=== PATIENT | female | born 1975 | race Caucasian/White ===

== ENCOUNTER 2018-08-05 08:39 | Emergency (ER) ==
[2018-08-05 08:51] VITALS: BP 164/90; TEMP 99; BMI 18.8
[2018-08-05 10:17] LABS: URINE PREGNANCY TEST NEGATIVE (NEGATIVE)
--- NOTE | 2018-08-05 10:36 | DI ---
EXAM: Four views of the left knee. History: Left knee pain. Findings: No acute fracture or dislocation. No abnormal calcifications or radiopaque foreign bodies . Joint spaces are preserved. Impression: Unremarkable exam
--- NOTE | 2018-08-05 10:38 | DI ---
EXAM: Three views of the left ankle. History: Left ankle pain. Findings: No acute fracture or dislocation. Several small scattered osseous lucencies are seen with in the distal tibia and fibula. Joint spaces are preserved. No abnormal calcifications or radiopaqu e foreign bodies. Impression: 1. No acute osseous abnormality. 2. Several small osseous lucencies within the distal tibia and fibula are nonspecific but could be b enign or malignant. Recommend further evaluation with non emergent outpatient MRI
--- NOTE | 2018-08-05 10:51 | ED.PDOC ---
General ED Provider: Dr. VERONICA ROD Chief Complaint: Extremity Pain/Injury Stated Complaint: left ankle and knee pain Time Seen by Physician: 08:40 Information Source: Patient Exam Limitations: No limitations Nursing and Triage Documentation Reviewed and Agree: Yes Does patient meet sepsis criteria?: No (seen with AHRIKA ) System Inflammatory Response Syndrome: Not Applicable Sepsis Protocol: For patient's 13 years and over: Temp is 96.8 and below OR 101 and greater Pulse >90 BPM Resp >20/minute Acutely Altered Mental Status Are patient's symptoms suggestive of a new infection, such as: -Pneumonia -Skin, Soft Tissue -Endocarditis -UTI -Bone, Joint Infection -Implantable Device -Acute Abdominal Infection -Wound Infection -Meningitis -Blood Stream Catheter Infection -Unknown Musculoskeletal Complaint Exam - Ankle/Foot Complaint/Exam Location of Injury: Reports: Left, Ankle, Foot Mechanism of Injury: Reports: Trauma Onset/Duration: 1 WEEK Symptoms Are: Reports: Still present Onset of Pain: Reports: Immediate Initial Severity: Mild Current Severity: Mild Location: Reports: Discrete Character: Reports: Aching Alleviating: Reports: Rest, Position Aggravating: Reports: Movement Able to Bear Weight: Yes Associated Signs and Symptoms: Denies: Swelling, Redness, Bruising, Fever, Weakness, Numbness, Tingling Gout Risk Factors: Reports: None Related Surgical History: Reports: None Lower Extremity Findings: Present: Other joint pain. Absent: Swelling, Ecchymosis, Abnormal contour, Rotation, Ligamentous instability, Laceration, Erythema, Warmth, Blisters Achilles Tendon Abnormality: Yes Tenderness: Present: Medial malleolus, Lateral malleolus Limited Range of Motion: Present: Inversion Differential Diagnosis: Closed Fracture Review of Systems - Review Of Systems Constitutional: Reports: No symptoms Eyes: Reports: No symptoms Ears, Nose, Mouth, Throat: Reports: No symptoms Respiratory: Reports: No symptoms Cardiac: Reports: No symptoms GI: Reports: No symptoms : Reports: No symptoms Musculoskeletal: Reports: Joint pain (LEFT PAIN) Skin: Reports: No symptoms Neurological: Reports: No symptoms Endocrine: Reports: No symptoms Hematologic/Lymphatic: Reports: No symptoms All Other Systems: Reviewed and Negative Past Medical History - Past Medical History Previously Healthy: Yes Endocrine: Reports: None Cardiovascular: Reports: None Respiratory: Reports: None Hematological: Reports: None Gastrointestinal: Reports: None Genitourinary: Reports: None Neuro/Psych: Reports: None Musculoskeletal: Reports: None Cancer: Reports: None Last Menstrual Period: no period for 3 months. - Surgical History General Surgical History: Reports: None - Family History Family History: Reports: None - Social History Smoking Status: Current every day smoker Hx Substance Use: No Alcohol Screening: Occasionally - Immunizations Tetanus Shot up to Date: No Physical Exam - Physical Exam Appearance: Well-appearing, No pain distress, Well-nourished Eyes: GLENNY, EOMI, Conjunctiva clear ENT: Ears normal, Nose normal, Oropharynx normal Respiratory: Airway patent, Breath sounds clear, Breath sounds equal, Respirations nonlabored Cardiovascular: RRR, Pulses normal, No rub, No murmur GI/: Soft, Nontender, No masses, Bowel sounds normal, No Organomegaly Musculoskeletal: Normal strength, ROM intact, No edema, No calf tenderness Skin: Warm, Dry, Normal color Neurological: Sensation intact, Motor intact, Reflexes intact, Cranial nerves intact, Alert, Oriented Psychiatric: Affect appropriate, Mood appropriate Critical Care Note - Critical Care Note Total Time (mins): 0 Course - Course Orders, Labs, Meds: Lab Review 08/05/18 10:03 Urine Test Negative Orders Category Date Time Status URINE Stat LAB 08/05/18 10:03 Completed ANKLE, LEFT MIN 3 VIEWS Stat RADS 08/05/18 09:52 Completed KNEE, LEFT 4 VIEWS Stat RADS 08/05/18 09:52 Completed Vital Signs: Temp Pulse Resp BP Pulse Ox 08/05/18 08:39 99.0 F 121 H 20 164/90 H 96 Departure - Departure Time of Disposition: 10:53 Disposition: HOME SELF-CARE Discharge Problem: Ankle sprain Qualifiers: Encounter type: initial encounter Laterality: left Instructions: Knee Pain (ED) Condition: Good Pt referred to PMD for follow-up: Yes IPMP verified?: No Additional Instructions: Please call your Family Physician as soon as possible to schedule a follow-up appointment. Allergies/Adverse Reactions: Allergies No Known Allergies Allergy (Unverified 08/05/18 08:53) Home Medications: Ambulatory Orders 1 [No Reported Medications] 08/05/18
== END 2018-08-05 11:04 | disposition home or self-care (01) ==
LOC: ED 08:39
DX: S93.402A Sprain of unspecified ligament of left ankle, initial encounter (principal); M25.562 Pain in left knee; X50.1XXA Overexertion from prolonged static or awkward postures, initial encounter; F17.210 Nicotine dependence, cigarettes, uncomplicated
CPT/HCPCS: 81025; 99282

== ENCOUNTER 2018-08-12 12:18 | Outpatient (CLI) | END 2018-08-12 12:19 | disposition home or self-care (01) | LOC: RHC-LAB 12:18 | PROVIDERS: ATTEND Nurse Practitioner Family | DX: R31.9 Hematuria, unspecified (principal); R35.0 Frequency of micturition | CPT/HCPCS: 81001 ==

== ENCOUNTER 2024-03-25 18:20 | Observation (INO) ==
[2024-03-25 19:05] LABS: BASOPHILS % (AUTO) 0.5 % (0.0-3.0); EOSINOPHILS # (AUTO) 0.2 K/ul (0.0-0.7); EOSINOPHILS % (AUTO) 1.8 % (0.0-7.0); HEMATOCRIT 33.9 % (37.0-47.0); HEMOGLOBIN 11.6 g/dl (12.0-16.0); IMMATURE GRANULOCYTE % (AUTO) 0.2 % (0.0-5.0); LYMPHOCYTES # (AUTO) 3.3 K/uL (0.60-3.4); LYMPHOCYTES % (AUTO) 38.4 (10.0-50.0); MEAN CORPUSCULAR HEMOGLOBIN 33.8 pg (27.0-31.0); MEAN CORPUSCULAR HGB CONC 34.2 (31.8-35.4); MEAN CORPUSCULAR VOLUME 98.8 fl (81.0-99.0); MONOCYTES % (AUTO) 11.2 (0-10); NEUTROPHILS # (AUTO) 4.1 K/ul (2.0-6.9); NEUTROPHILS % (AUTO) 47.9 % (42.2-75.2); PLATELET COUNT 249 10^3/uL (140-440); RED BLOOD COUNT 3.43 10^6/ul (4.20-5.40)
[2024-03-25] MEDS: ATIVAN IVP STA (19:10)
[2024-03-25 19:18] LABS: ALBUMIN 4.43 g/dL (3.5-5.0); ASPARTATE AMINO TRANSFERASE 51.3 U/L (14-36); BILIRUBIN,TOTAL 0.27 mg/dL (0.2-1.3); BLOOD UREA NITROGEN 5.8 mg/dL (7-17); CALCIUM 9.08 mg/dL (8.4-10.2); CARBON DIOXIDE 23.5 mmol/L (22-30.0); CHLORIDE 84.3 mmol/L (98-107); CREATININE 0.68 mg/dL (0.60-1.30); GLUCOSE 103.2 mg/dL (74-106); LIPASE 70.9 U/L (23-300); POTASSIUM 4.61 mmol/L (3.5-5.1); TOTAL PROTEIN 7.49 g/dL (6.3-8.2)
--- NOTE | 2024-03-25 19:23 | ED.PDOC ---
General ED Provider: Dr. MARGARET MEEHAN DO Chief Complaint: Hypertension Stated Complaint: I can tell my blood pressure was up and I am checking When asked how she could tell her blood pressure was up she states that she normally develops a headache feels off she also now she was getting very shaky. She does admit to feeling a little nauseous last couple days. She denies any stimulant use other than nicotine She does admit to daily alcohol use as I think to drink today. I have reviewed the patient's medical records and she does have a history of alcohol abuse States she checks her blood pressure at home and has been in the 180s. She denies any chest pain or shortness of breath she denies any abdominal pain nausea but no vomiting no diarrhea Time Seen by Provider: 03/25/24 18:45 Mode of Arrival: Walk-In Information Source: Patient Exam Limitations: No limitations Primary Care Provider: HARIKA SCHULTE APRN,[facility] Nursing and Triage Documentation Reviewed and Agree: Yes What is Opioid Naive?: *Opioid Naive implies the patient is not already taking opioids or not chronically receiving opioids on a daily basis. *PRN dosing is not "usually" associated with tolerance. *Patients are at higher risk of over-sedation and aspiration. What is Opioid Tolerant?: *Opioid Tolerance implies less than the expected response to an opioid. *Acquired tolerance is defined by the patient taking 60mg of oral morphine daily (or equianalgesic dose of another opioid) for 1 week or more. *Often associated with chronic pain. *May take more than usual dose to achieve desired pain control. Review of Systems Review Of Systems Constitutional: Denies Chills, Fever, Malaise or Weakness Eyes: Reports No symptoms Ears, Nose, Mouth, Throat: Reports No symptoms Respiratory: Reports No symptoms Cardiac: Denies Chest pain, Edema, Irregular heart rate, Lightheadedness, Palpitations or Syncope GI: Reports Nausea and Poor appetite; Denies Abdominal pain, Diarrhea or Vomiting : Reports No symptoms Musculoskeletal: Reports No symptoms Skin: Reports No symptoms Neurological: Reports Anxiety Endocrine: Reports No symptoms Hematologic/Lymphatic: Reports No symptoms [facility] Medical History Hypo-osmolality and hyponatremia E87.1 - Hypo-osmolality and hyponatremia (ICD-10) Gastroesophageal reflux disease K21.9 - Gastro-esophageal reflux disease without esophagitis (ICD-10) Social History Smoking and tobacco status: Current every day smoker Tobacco type: cigarettes Smoking packs per day: 1 Years smoked: 30 Tobacco: How many years used: 40 Quit status: not considering quitting Second hand smoke exposure: Yes Alcohol intake: current Alcohol intake frequency: 3 or more drinks per day Alcohol type: beer Counseling provided: provider counseling Substance use type: does not use Cinthia/anabaptism: NONE Special cinthia needs: No Agree to transfusion: Yes Adopted: No Caregiver/support person: No Foster care: No Household members: children Housing: house Marital status: S SINGLE Lives independently: Yes Daycare: no daycare Number of children: 3 Number of grandchildren: 0 Highest education level completed: 11th grade Financial difficulty paying for basics: not applicable service: No penitentiary: No Current occupational status: employed 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 Current occupational exposures/hazards: Yes Pets and animals: Yes Leisure activites: other History of recent travel: No Sexually active: No Do you think of yourself as: straight/heterosexual Current gender identity: female Seatbelt use: always Helmet use: No (N/A) Drives intoxicated or rides with intoxicated dairy truck driver: No Water heater temperature set < 120 degrees: Yes Working smoke detector in home: Yes Fire extinguisher in home: Yes Carbon monoxide detector in home: No Firearms in home: No Female Reproductive History Menstrual Hx Hysterectomy: No Hx Tubal Ligation: No Physical Exam Physical Exam Appearance: Reports No pain distress Ill-appearing: None Pain Distress: None Eyes: Reports GLENNY and EOMI Neck: Supple Respiratory: Reports Airway patent, Breath sounds clear and Breath sounds equal Cardiovascular: Reports RRR GI/: Reports Soft and Nontender Musculoskeletal: Reports Normal strength, ROM intact, No edema and No calf tenderness Skin: Reports Warm and Dry Psychiatric: Reports Anxious and Other (Positive hand tremor) Interpretation EKG Interpretation Time of EKG #1: 18:50 ST Segment: Other (Twelve-lead EKG as read by me shortly after obtaining sinus rate of 84 with normal axis normal intervals there is some motion artifact but no obvious T wave abnormalities no evidence of acute ischemia or infarct no STEMI) Course Course 03/25/24 18:59 03/25/24 18:59 Orders, Labs, Meds: Lab Review 03/25/24 03/25/24 18:59 19:31 WBC 8.50 RBC 3.43 L Hgb 11.6 L Hct 33.9 L MCV 98.8 MCH 33.8 H MCHC 34.2 RDW Coeff of Adrian 12.0 Plt Count 249 Immature Gran % (Auto) 0.2 Neut % (Auto) 47.9 Lymph % (Auto) 38.4 Crenshaw % (Auto) 11.2 H Eos % (Auto) 1.8 Baso % (Auto) 0.5 Neut # (Auto) 4.1 Lymph # (Auto) 3.3 Crenshaw # (Auto) 1.0 Eos # (Auto) 0.2 Baso # (Auto) 0.0 Immature Gran # (Auto) 0.0 Sodium 116.0 L* Potassium 4.61 Chloride 84.3 L Carbon Dioxide 23.5 Anion Gap 12.81 BUN 5.8 L Creatinine 0.68 Estimated GFR (MDRD) 92.00 BUN/Creatinine Ratio 8.52 Glucose 103.2 Calcium 9.08 Total Bilirubin 0.27 AST 51.3 H ALT 18.0 Alkaline Phosphatase 85.0 Troponin I < 0.012 Total Protein 7.49 Albumin 4.43 Globulin 3.06 Albumin/Globulin Ratio 1.44 Lipase 70.9 Urine Color Yellow Urine Clarity Clear Urine pH 5.5 Ur Specific Myra <=1.005 Urine Protein Negative Urine Glucose (UA) Negative Urine Ketones Negative Urine Blood Trace-intact H Urine Nitrite Negative Urine Bilirubin Negative Urine Urobilinogen 0.2 Ur Leukocyte Esterase Negative Urine Microscopic RBC 2-5 Urine Microscopic WBC 0-2 Ur Squamous Epith Cells 10-20 Urine Bacteria Trace Urine Opiates Screen Negative Ur Oxycodone Screen Negative Urine Methadone Screen Negative Ur Barbiturates Screen Negative U Tricyclic Antidepress Negative Ur Phencyclidine Scrn Negative Ur Amphetamine Screen Negative U Methamphetamines Scrn Negative U Benzodiazepines Scrn Negative Urine Cocaine Screen Negative U Cannabinoids Screen Negative Orders Category Date Time Status PLACE PATIENT OBSERVATION .TO MEDSURG (MONITORED BED ADMISSION 03/25/24 20:48 Active ) EKG-(ED ONLY) Stat CARDIO 03/25/24 18:50 Completed ACTIVITY .Up ad Yina CARE 03/25/24 20:54 Active [facility] PRN CARE 03/25/24 20:56 Active CONTINUOUS PULSE OX (NURSING) PULSEOX CARE 03/25/24 20:56 Active INTAKE & OUTPUT Q8HR CARE 03/25/24 20:54 Active SEIZURE ASSESSMENT .PRN CARE 03/25/24 20:59 Active SEIZURE PRECAUTIONS .AT ALL TIMES CARE 03/25/24 20:59 Active TELEMETRY MONITORING TELE CARE 03/25/24 20:49 Active TELEMETRY MONITORING TELE CARE 03/25/24 20:56 Completed VITAL SIGNS Q4HR CARE 03/25/24 20:55 Active REGULAR DIET DIETARY 03/26/24 Breakfast Ordered BMP [BASIC METABOLIC PANEL] Timed LAB 03/26/24 02:00 Ordered CBC W/ AUTO DIFF DAILY@0600 LAB 03/26/24 06:00 Ordered CBC W/ AUTO DIFF DAILY@0600 LAB 03/27/24 06:00 Ordered CBC W/ AUTO DIFF Stat LAB 03/25/24 18:59 Completed CMP [COMPREHENSIVE METABOLIC PANEL] Stat LAB 03/25/24 18:59 Completed COMPREHENSIVE METABOLIC PANEL DAILY@0600 LAB 03/26/24 06:00 Ordered COMPREHENSIVE METABOLIC PANEL DAILY@0600 LAB 03/27/24 06:00 Ordered COVID [SARS COV-2 RNA RAPID SORAYA] Stat LAB 03/25/24 21:49 Completed LIPASE Stat LAB 03/25/24 18:59 Completed OSMOLALITY,URINE Stat LAB 03/25/24 21:00 Received SERUM OSMOLALITY Stat LAB 03/25/24 21:00 Received TROPONIN I Stat LAB 03/25/24 18:59 Completed UA [URINALYSIS C & S IF INDICATED] Stat LAB 03/25/24 19:31 Completed URINE DRUG SCREEN (RAPID FOR ED) [DRUG SCREEN, URINE, LAB 03/25/24 19:31 Completed RAPID] Stat Acetaminophen [Tylenol] Meds 03/25/24 20:54 Active 650 mg PO Q4H PRN Folic Acid Meds 03/26/24 09:00 Active 1 mg PO DAILY Lorazepam [Ativan] Meds 03/25/24 20:54 Active 1 mg IVP Q2HR PRN Lorazepam [Ativan] Meds 03/25/24 20:54 Active 1 mg PO Q2HR PRN Lorazepam [Ativan] Meds 03/25/24 18:50 Discontinued 2 mg IVP ONCE STA Lorazepam [Ativan] Meds 03/25/24 20:54 Active 2 mg IVP Q15MIN PRN Lorazepam [Ativan] Meds 03/25/24 20:54 Active 2 mg IVP Q1HR PRN Lorazepam [Ativan] Meds 03/25/24 20:54 Active 2 mg PO Q1HR PRN Multivitamin [Multivitamin Tablet] Meds 03/26/24 09:00 Active 1 tab PO DAILY Ondansetron HCl/Pf [Zofran Sdv] Meds 03/25/24 20:54 Active 4 mg IVP Q6H PRN Sodium Chloride 0.9% [Sodium Chloride] 1,000 ml Meds 03/25/24 20:48 Active IV 125 mls/hr Sodium Chloride 0.9% [Sodium Chloride] 1,000 ml Meds 03/25/24 21:30 Active IV 125 mls/hr Sodium Chloride 0.9% [Sodium Chloride] 1,000 ml Meds 03/25/24 19:57 Discontinued IV BOLUS Vitamin B-1 Inj [Thiamine] 100 mg Meds 03/25/24 20:54 Discontinued 0.9 % Sodium Chloride [Sodium Chloride] 50 ml IV ONCE Vitamin B-1 [Thiamine] Meds 03/26/24 09:00 Active 100 mg PO DAILY CHEST, 1V AP ONLY Stat RADS 03/25/24 19:10 Completed Medications Generic Name Dose Route Start Last Admin Trade Name Freq PRN Reason Stop Dose Admin Acetaminophen 650 mg 03/25/24 20:54 Acetaminophen 325 Mg Tablet PO Q4H PRN Mild Pain Albuterol Sulfate 2 puff 03/25/24 22:30 Albuterol Sulfate 8 Gm Inhaler IH Q6H PRN Bronchospasm Folic Acid 1 mg 03/26/24 09:00 Folic Acid 1 Mg Tablet PO DAILY YULIANA Sodium Chloride 1,000 mls @ 125 mls/hr 03/25/24 20:48 Sodium Chloride IV 03/26/24 04:47 .Q8H ONE Sodium Chloride 1,000 mls @ 125 mls/hr 03/25/24 21:30 Sodium Chloride IV .Q8H YULIANA Lorazepam 2 mg 03/25/24 20:54 Lorazepam 1 Mg Tablet PO Q1HR PRN Withdrawal Lorazepam 1 mg 03/25/24 20:54 Lorazepam 1 Mg Tablet PO Q2HR PRN Withdrawal Lorazepam 2 mg 03/25/24 20:54 Lorazepam Inj 2 Mg/Ml Vial IVP Q15MIN PRN Withdrawal Lorazepam 2 mg 03/25/24 20:54 Lorazepam Inj 2 Mg/Ml Vial IVP Q1HR PRN Withdrawal Lorazepam 1 mg 03/25/24 20:54 Lorazepam Inj 2 Mg/Ml Vial IVP Q2HR PRN Withdrawal Losartan Potassium 25 mg 03/26/24 09:00 Losartan Potassium 25 Mg Tablet PO DAILY [facility] Metoprolol Succinate 25 mg 03/25/24 22:30 Metoprolol Succinate 25 Mg Tab.Er.24h PO Q12H [facility] Multivitamins 1 tab 03/26/24 09:00 Multivitamin 1 Tab PO DAILY [facility] Omeprazole 40 mg 03/26/24 09:00 Omeprazole 20 Mg Capsule.Dr PO DAILY [facility] Ondansetron HCl 4 mg 03/25/24 20:54 Ondansetron Hcl/Pf 4 Mg/2 Ml Sdv IVP Q6H PRN Nausea / Vomiting Thiamine HCl 100 mg 03/26/24 09:00 Vitamin B-1 100 Mg Tablet PO DAILY [facility] Discontinued Medications Generic Name Dose Route Start Last Admin Trade Name Freq PRN Reason Stop Dose Admin Sodium Chloride 1,000 mls @ 1,000 mls/hr 03/25/24 19:57 03/25/24 20:14 Sodium Chloride IV 03/25/24 20:56 1,000 mls/hr BOLUS ONE Administration Thiamine HCl 100 mg/ Sodium 51 mls @ 100 mls/hr 03/25/24 20:54 Chloride IV 03/25/24 21:24 ONCE ONE Lorazepam 2 mg 03/25/24 18:50 03/25/24 19:10 Lorazepam Inj 2 Mg/Ml Vial IVP 03/25/24 18:51 2 mg ONCE STA Administration Shortly after interviewing and examining the patient, treatment was initiated. Orders were placed for appropriate testing and treatment specific to my findings, appropriate guidelines and the patients complaint (please see physician order section of this chart). Based on the patients chief complaint, and information gathered so far, the following diagnosis were considered. This list is not exhaustive. Acute coronary syndrome, CHF, COPD, asthma, pneumothorax, aortic pathologies, pulmonary embolism, pneumonia, bronchitis, esophageal pathologies, muscular skeletal pain, airway obstruction (including foreign body), gastritis. I have also take into consideration the likelihood that this is alcohol withdrawal Vital Signs: Temp Pulse Resp BP Pulse Ox 03/25/24 18:25 97.3 F L 98 20 180/112 H 100 Discharge Plan Discharge Patient Disposition: PLACED OBSERVATION Discharge Problem: Hyponatremia, Tremor Did you review [place] [employer] for ALL controlled substances?: Not Applicable ED Provider: MARGARET MEEHAN
[2024-03-25 19:39] LABS: TROPONIN I < 0.012 ng/ml (0.0000-0.120)
[2024-03-25 20:00] LABS: BILIRUBIN,URINE Negative (NEGATIVE); CLARITY,URINE Clear (CLEAR); COLOR,URINE Yellow (YELLOW); GLUCOSE, URINE (UA) Negative (NEGATIVE); KETONES,URINE Negative (NEGATIVE); LEUKOCYTE ESTERASE ,URINE Negative (NEGATIVE); NITRITE,URINE Negative (NEGATIVE); PH,URINE 5.5 (5-9); PROTEIN,URINE Negative (NEGATIVE); URINE, BLOOD Trace-intact (NEGATIVE); UROBILINOGEN,URINE 0.2 (0.2)
[2024-03-25 20:01] LABS: BACTERIA,URINE TRACE (NOT PRESENT); URINE WBC, MICROSCOPIC 0-2 (0-2)
[2024-03-25 20:07] LABS: AMPHETAMINE SCREEN,URINE NEGATIVE (NEGATIVE); BARBITURATE SCREEN,URINE NEGATIVE (NEGATIVE); BENZODIAZEPINES SCREEN,URINE NEGATIVE (NEGATIVE); CANNABINOID SCREEN,URINE NEGATIVE (NEGATIVE); COCAIN SCREEN,URINE NEGATIVE (NEGATIVE); METHADONE URINE SCREEN NEGATIVE (NEGATIVE); METHAMPHETAMINES SCREEN,URINE NEGATIVE (NEGATIVE); OPIATE SCREEN,URINE NEGATIVE (NEGATIVE); OXYCODONE URINE SCREEN NEGATIVE (NEGATIVE); PHENCYCLIDINE SCREEN,URINE NEGATIVE (NEGATIVE); TRICYCLIC ANTIDEPRESSANTS URIN NEGATIVE (NEGATIVE)
--- NOTE | 2024-03-25 20:11 | DI ---
EXAM: CHEST ONE-VIEW HISTORY: Shaky COMPARISON: AP chest from 11/16/2023 FINDINGS: The cardiomediastinal silhouette is normal. The pulmonary vasculature is normal. No con solidating infiltrates are detected. No pneumothoraces or pleural effusions. IMPRESSION: 1. No acute cardiopulmonary disease. .
[2024-03-25] MEDS: SODIUM CHLORIDE 1,000 ML IV ONE (20:14)
[2024-03-25] MEDS ORDERED: SODIUM CHLORIDE 1,000 ML IV ONE (20:48)
[2024-03-25] MEDS ORDERED: TYLENOL PO PRN (20:54)
[2024-03-25] MEDS ORDERED: ATIVAN IVP PRN ×3 (20:54)
[2024-03-25] MEDS ORDERED: ZOFRAN SDV IVP PRN (20:54)
[2024-03-25] MEDS ORDERED: ATIVAN PO PRN ×2 (20:54)
[2024-03-25 22:04] LABS: SARS COV-2 RNA RAPID NAAT NEGATIVE (NEGATIVE)
[2024-03-25] MEDS ORDERED: VENTOLIN HFA IH PRN (22:30)
[2024-03-25 23:26] VITALS: BMI 22.1
[2024-03-25] MEDS ORDERED: THIAMINE 100 MG in SODIUM CHLORIDE 50 ML IV ONE (23:30)
[2024-03-26] MEDS: SODIUM CHLORIDE 1,000 ML IV SCH (00:02)
[2024-03-26] MEDS: THIAMINE 100 MG in SODIUM CHLORIDE 50 ML IV ONE (00:14)
[2024-03-26] MEDS: THIAMINE ONE (00:18)
[2024-03-26] MEDS: TOPROL XL PO SCH (00:22)
[2024-03-26 02:21] LABS: BLOOD UREA NITROGEN 6.3 mg/dL (7-17); CALCIUM 8.93 mg/dL (8.4-10.2); CARBON DIOXIDE 27.2 mmol/L (22-30.0); CHLORIDE 94.1 mmol/L (98-107); CREATININE 0.65 mg/dL (0.60-1.30); GLUCOSE 97.3 mg/dL (74-106); POTASSIUM 4.2 mmol/L (3.5-5.1); SODIUM 125.3 mmol/L (134.5-145)
[2024-03-26 05:35] LABS: BASOPHILS % (AUTO) 0.2 % (0.0-3.0); EOSINOPHILS # (AUTO) 0.1 K/ul (0.0-0.7); EOSINOPHILS % (AUTO) 1.5 % (0.0-7.0); HEMATOCRIT 34.1 % (37.0-47.0); HEMOGLOBIN 12.1 g/dl (12.0-16.0); IMMATURE GRANULOCYTE % (AUTO) 0.2 % (0.0-5.0); LYMPHOCYTES # (AUTO) 1.4 K/uL (0.60-3.4); LYMPHOCYTES % (AUTO) 21.2 (10.0-50.0); MEAN CORPUSCULAR HEMOGLOBIN 34.6 pg (27.0-31.0); MEAN CORPUSCULAR HGB CONC 35.5 (31.8-35.4); MEAN CORPUSCULAR VOLUME 97.4 fl (81.0-99.0); MONOCYTES # (AUTO) 0.7 K/uL (0.4-2.0); MONOCYTES % (AUTO) 10.7 (0-10); NEUTROPHILS # (AUTO) 4.3 K/ul (2.0-6.9); NEUTROPHILS % (AUTO) 66.2 % (42.2-75.2); PLATELET COUNT 241 10^3/uL (140-440); RDW COEFFICIENT OF VARIATION 11.9 % (11.6-14.8); WHITE BLOOD COUNT 6.52 K/ul (4.6-10.2)
[2024-03-26 05:49] LABS: ALANINE AMINOTRANSFERASE 16.4 U/L (0-35); ALBUMIN 3.95 g/dL (3.5-5.0); ALKALINE PHOSPHATASE 78.2 U/L (38-126); ASPARTATE AMINO TRANSFERASE 36.3 U/L (14-36); BILIRUBIN,TOTAL 1.02 mg/dL (0.2-1.3); BLOOD UREA NITROGEN 6.7 mg/dL (7-17); CALCIUM 9.33 mg/dL (8.4-10.2); CARBON DIOXIDE 26.6 mmol/L (22-30.0); CHLORIDE 99.2 mmol/L (98-107); CREATININE 0.6 mg/dL (0.60-1.30); POTASSIUM 4.11 mmol/L (3.5-5.1); SODIUM 130.1 mmol/L (134.5-145); TOTAL PROTEIN 6.81 g/dL (6.3-8.2)
[2024-03-26] MEDS: MULTIVITAMIN TABLET PO SCH (09:20)
[2024-03-26] MEDS: THIAMINE PO SCH (09:21)
[2024-03-26] MEDS: COZAAR PO SCH (09:21)
[2024-03-26] MEDS: FOLIC ACID PO SCH (09:21)
[2024-03-26] MEDS: PRILOSEC PO SCH (09:21)
--- NOTE | 2024-03-26 09:37 | PCM.SS ---
Provider Provider: MERARI PATIÑO PA-C, [facility] Admission Date Admission Date: 03/25/24 Discharge Date Discharge Date: 03/26/24 Primary Care Physician Primary Care Physician: HARIKA SCHULTE APRN,[facility] Chief Complaint Reason For Visit: HYPONATREMIA History of Present Illness History of Present Illness: Admitted 03/25/24 21:39, this 49 year old /WHITE/F with pmhx of alcohol use, chronic hyponatremia, hyperlipidemia, hypertension, gerd who presents to ER with overall not feeling well and elevated BP. She states her BP was fine earlier in the day. But then she started getting a headache and checked her BP and it was elevated. In the ER it was initially 180s but then came down without intervention. She was given ativan in the ER in case alcohol withdrawal was contributing. However she states she had had 3 beers and did not feel as though she was withdrawing. She was found to have sodium of 116 when she normally runs mid 120s. Admitted to med surg for hyponatremia. Pt was started on NS fluids. Repeat check at 0200 showed sodium of 125. Fluids were stopped. This morning sodium is now 130. Pt is feeling at her baseline. Hoping to go home so she can smoke. She states she takes lasix for her BP, not edema. We discussed holding that and her potassium supplement until her PCP follow up to see if it helps her sodium. We also discussed her chronic alcohol use is a major contributer. We discussed risks of high and low sodium levels. Serum and urine osmols pending. [facility] Medical History Hypo-osmolality and hyponatremia E87.1 - Hypo-osmolality and hyponatremia (ICD-10) Gastroesophageal reflux disease K21.9 - Gastro-esophageal reflux disease without esophagitis (ICD-10) Family History FATHER Hypertension Mother Hypertension SISTER TIA (transient ischemic attack) Social History Smoking and tobacco status: Current every day smoker Tobacco type: cigarettes Smoking packs per day: 1 Years smoked: 30 Tobacco: How many years used: 40 Quit status: not considering quitting Second hand smoke exposure: Yes Alcohol intake: current Alcohol intake frequency: 3 or more drinks per day Alcohol type: beer Counseling given: Yes Counseling provided: provider counseling Substance use type: does not use Counseling given: Yes (Patient may drink up to 8 beers each eveing) Cinthia/buddhism: NONE Special cinthia needs: No Agree to transfusion: Yes Adopted: No Caregiver/support person: No Foster care: No Household members: children Housing: house Marital status: S SINGLE Lives independently: Yes Daycare: no daycare Number of children: 3 Number of grandchildren: 0 Highest education level completed: 11th grade Financial difficulty paying for basics: not applicable service: No USP: No Current occupational status: employed 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 Current occupational exposures/hazards: Yes Pets and animals: Yes Leisure activites: other History of recent travel: No Sexually active: No Do you think of yourself as: straight/heterosexual Current gender identity: female Other: Patient is a fraternal twin Seatbelt use: always Helmet use: No (N/A) Drives intoxicated or rides with intoxicated hazmat cdl driver: No Water heater temperature set < 120 degrees: Yes Working smoke detector in home: Yes Fire extinguisher in home: Yes Carbon monoxide detector in home: No Firearms in home: No Medications Mecications: Medications at Discharge (Home Meds & RX) albuterol sulfate 90 mcg/actuation aerosol inhaler See Rx Instructions .Route .COMPLEX #8.5 grams 10/08/23 potassium chloride 20 mEq tablet,extended release(part/cryst) (Klor-Con M) 20 meq PO QDAY persistently low potassium #90 tabs 11/01/23 cetirizine 10 mg capsule (Zyrtec) 10 mg PO QDAY #30 caps 11/21/23 omeprazole 40 mg capsule,delayed release 40 mg PO DAILY #30 caps 02/17/24 furosemide 20 mg tablet 20 mg PO QDAY #30 tabs 03/02/24 losartan 50 mg tablet 25 mg (1/2 x 50 mg) PO QDAY #30 tabs 03/17/24 metoprolol succinate 25 mg tablet,extended release 24 hr 25 mg PO Q12H 03/25/24 Allergies Allergies Allergy/AdvReac Type Severity Reaction Status Date / Time amoxicillin trihydrate (From Allergy Mild Upset Verified 03/25/24 18:32 Amoxil) stomach amlodipine AdvReac Mild tingling Verified 03/25/24 18:32 and numbness to lower extremities Review of Systems Constitutional: Denies Fever or Fatigue Cardiovascular: Denies Chest pain, Chest Pressure or Edema Respiratory: Denies Cough or Shortness of air Gastrointestinal: Denies Nausea, Vomiting, Diarrhea, Abdominal pain or Melena Genitourinary: Denies Dysuria or Frequency Dermatologic: Denies Rashes Neurological: Denies Headache, Dizziness or Syncope Physical Examination Appearance: Positive No Apparent Distress and Alert and Oriented x3 Head: Positive Normocephalic and Atraumatic Neck: Positive Supple and Trachea Midline Heart: Positive RRR Respiratory: Positive Breath Sounds Clear, Bilaterally and Respirations Nonlabored GI/: Positive Soft, Nontender, Bowel sounds normal and No Distention Extremities: Negative Edema Neurological: Positive Cranial nerves intact, Alert and Oriented Psychiatric: Positive Normal Judgement, Normal Insight, Affect Appropriate and Mood Appropriate Vital Signs (Last 4 Hours) Vital Signs Last 4 Hours: Vital Signs: Last 4 Hours 03/26/24 06:00 03/26/24 07:00 03/26/24 08:00 Oxygen Delivery Method Room Air Room Air Room Air Labs This Visit Labs This Visit: Labs This Visit 03/25/24 03/25/24 03/25/24 18:59 19:31 21:49 WBC 8.50 RBC 3.43 L Hgb 11.6 L Hct 33.9 L MCV 98.8 MCH 33.8 H MCHC 34.2 RDW Coeff of Adrian 12.0 Plt Count 249 Immature Gran % (Auto) 0.2 Neut % (Auto) 47.9 Lymph % (Auto) 38.4 Newton % (Auto) 11.2 H Eos % (Auto) 1.8 Baso % (Auto) 0.5 Neut # (Auto) 4.1 Lymph # (Auto) 3.3 Newton # (Auto) 1.0 Eos # (Auto) 0.2 Baso # (Auto) 0.0 Immature Gran # (Auto) 0.0 Sodium 116.0 L* Potassium 4.61 Chloride 84.3 L Carbon Dioxide 23.5 Anion Gap 12.81 BUN 5.8 L Creatinine 0.68 Estimated GFR (MDRD) 92.00 BUN/Creatinine Ratio 8.52 Glucose 103.2 Calcium 9.08 Total Bilirubin 0.27 AST 51.3 H ALT 18.0 Alkaline Phosphatase 85.0 Troponin I < 0.012 Total Protein 7.49 Albumin 4.43 Globulin 3.06 Albumin/Globulin Ratio 1.44 Lipase 70.9 Urine Color Yellow Urine Clarity Clear Urine pH 5.5 Ur Specific [place] <=1.005 Urine Protein Negative Urine Glucose (UA) Negative Urine Ketones Negative Urine Blood Trace-intact H Urine Nitrite Negative Urine Bilirubin Negative Urine Urobilinogen 0.2 Ur Leukocyte Esterase Negative Urine Microscopic RBC 2-5 Urine Microscopic WBC 0-2 Ur Squamous Epith Cells 10-20 Urine Bacteria Trace Urine Opiates Screen Negative Ur Oxycodone Screen Negative Urine Methadone Screen Negative Ur Barbiturates Screen Negative U Tricyclic Antidepress Negative Ur Phencyclidine Scrn Negative Ur Amphetamine Screen Negative U Methamphetamines Scrn Negative U Benzodiazepines Scrn Negative Urine Cocaine Screen Negative U Cannabinoids Screen Negative SARS CoV-2 RNA Rapid SORAYA Negative 03/26/24 03/26/24 02:00 05:30 WBC 6.52 RBC 3.50 L Hgb 12.1 Hct 34.1 L MCV 97.4 MCH 34.6 H MCHC 35.5 H RDW Coeff of Adrian 11.9 Plt Count 241 Immature Gran % (Auto) 0.2 Neut % (Auto) 66.2 Lymph % (Auto) 21.2 Newton % (Auto) 10.7 H Eos % (Auto) 1.5 Baso % (Auto) 0.2 Neut # (Auto) 4.3 Lymph # (Auto) 1.4 Newton # (Auto) 0.7 Eos # (Auto) 0.1 Baso # (Auto) 0.0 Immature Gran # (Auto) 0.0 Sodium 125.3 L 130.1 L Potassium 4.20 4.11 Chloride 94.1 L 99.2 Carbon Dioxide 27.2 26.6 Anion Gap 8.20 8.41 BUN 6.3 L 6.7 L Creatinine 0.65 0.60 Estimated GFR (MDRD) 97.00 106.00 BUN/Creatinine Ratio 9.69 11.16 Glucose 97.3 90.0 Calcium 8.93 9.33 Total Bilirubin 1.02 AST 36.3 H ALT 16.4 Alkaline Phosphatase 78.2 Troponin I Total Protein 6.81 Albumin 3.95 Globulin 2.86 Albumin/Globulin Ratio 1.38 Lipase Urine Color Urine Clarity Urine pH Ur Specific [place] Urine Protein Urine Glucose (UA) Urine Ketones Urine Blood Urine Nitrite Urine Bilirubin Urine Urobilinogen Ur Leukocyte Esterase Urine Microscopic RBC Urine Microscopic WBC Ur Squamous Epith Cells Urine Bacteria Urine Opiates Screen Ur Oxycodone Screen Urine Methadone Screen Ur Barbiturates Screen U Tricyclic Antidepress Ur Phencyclidine Scrn Ur Amphetamine Screen U Methamphetamines Scrn U Benzodiazepines Scrn Urine Cocaine Screen U Cannabinoids Screen SARS CoV-2 RNA Rapid SORAYA Imaging Imaging: EXAM: CHEST ONE-VIEW HISTORY: Shaky COMPARISON: AP chest from 11/16/2023 FINDINGS: The cardiomediastinal silhouette is normal. The pulmonary vasculature is normal. No consolidating infiltrates are detected. No pneumothoraces or pleural effusions. IMPRESSION: 1. No acute cardiopulmonary disease. Review Review Statement: I have independently reviewed and interpreted the labs/EKGs/imaging that were ordered by the ER provider. I have reviewed all outside records that are available currently in our EMR including imaging/notes/labs from previous visits. Plan Reccomendations/Plan: 1. Acute on chronic hyponatremia - fluids, recheck bmp, seizure precautions, hold lasix 2. Alcohol disorder - CIWAs as indicated, ativan prn 3. Hypertension - Cont home meds 4. GERD - Cont home meds Pt was started on NS fluids. Repeat check at 0200 showed sodium of 125. Fluids were stopped. This morning sodium is now 130. Pt is feeling at her baseline. Hoping to go home so she can smoke. She states she takes lasix for her BP, not edema. We discussed holding that and her potassium supplement until her PCP follow up to see if it helps her sodium. We also discussed her chronic alcohol use is a major contributor. We discussed risks of high and low sodium levels. Serum and urine osmols pending. 1. Acute on chronic hyponatremia, resolved 2. Alcohol disorder 3. Hypertension 4. GERD Additional Planning: Case discussed with ED Physician, Dr. Muñoz. Advanced Care Plannin minutes spent discussing advance care planning. Smoking Cessation: 3 minutes spent discussing smoking cessation. Admit to: Obs Discussed Plan of Care with Dr. Juventino Sharp. Review With Patient Reviewed with Patient and Family: Patient and family have been counseled on condition and care plan and have no immediate questions. I have personally discussed and reviewed the patient's visit/current labs/imaging/decision making with Dr. Juventino Sharp, my supervising attending. Total number of minutes spent with patient [85] min. More than 50% of the time spent with this patient was devoted to counseling and coordination of care. Time of Admission:03/25/24 21:39 Time of Discharge: 03/26/24 0945 Discharge Plan Discharge Discharge Orders: Discharge Patient (ONCE); Ordered 03/26/24 Ordered By: MERARI PATIÑO Activity Restrictions/Additional Instructions: DISCHARGE TO HOME Diet as Tolerated Activity as Tolerated HOLD LASIX AND POTASSIUM UNTIL Primary Care Provider FOLLOW UP Continue your other Home medications as indicated DX: ACUTE ON CHRONIC HYPONATREMIA Instructions: Hyponatremia (DC) Patient Disposition: HOME SELF-CARE Prescriptions: Continued omeprazole 40 mg capsule,delayed release(DR/EC) 40 mg PO DAILY Qty: 30 2RF losartan 50 mg tablet 25 mg PO QDAY Qty: 30 1RF Rx Instructions: 03/17/2024, decrease losartan to 1/2 tablet or 25 mg po daily. metoprolol succinate 25 mg tablet extended release 24 hr 25 mg PO Q12H Rx Instructions: dosage change Zyrtec 10 mg capsule 10 mg PO QDAY Qty: 30 5RF albuterol sulfate 90 mcg/actuation HFA aerosol inhaler See Rx Instructions .ROUTE .COMPLEX Qty: 8.5 2RF Dose Instruction: INHALE 2 PUFFS BY MOUTH EVERY 6 HOURS NEEDED FOR SHORTNESS OF BREATH OR WHEEZING Rx Instructions: INHALE 2 PUFFS BY MOUTH EVERY 6 HOURS NEEDED FOR SHORTNESS OF BREATH OR WHEEZING Discontinued potassium chloride [Klor-Con M20] 20 mEq tablet,ER particles/crystals 20 meq PO QDAY Qty: 90 1RF furosemide 20 mg tablet 20 mg PO QDAY Qty: 30 2RF Did you review [place] [employer] for ALL controlled substances?: Not Applicable Discussed opioids are addictive and Narcan is available by prescription or from pharmacy.: No Condition: Stable Referrals: HARIKA SCHULTE, DHIRAJ,FNPBC [Primary Care Provider] - 03/31/24 2:30 pm
[2024-03-26 11:01] VITALS: BP 140/87; PULSE 70; RESP 12; TEMP 97
[2024-03-28 06:14] LABS: OSMOLALITY,URINE 113 mOsmol/kg (.)
[2024-03-29 02:08] LABS: SERUM OSMOLALITY 265 mOsmol/kg (275-295)
== END 2024-03-26 11:05 | disposition home or self-care (01) ==
LOC: MEDSURG B 18:20 → ED 18:20 → MEDSURG B 22:35
PROVIDERS: ADMIT Hospitalist; ATTEND Physician Assistant
DX: Z20.822 Contact with and (suspected) exposure to COVID-19; Z51.81 Encounter for therapeutic drug level monitoring; F17.210 Nicotine dependence, cigarettes, uncomplicated; I10 Essential (primary) hypertension; R25.1 Tremor, unspecified; E87.1 Hypo-osmolality and hyponatremia; Z79.899 Other long term (current) drug therapy; E78.5 Hyperlipidemia, unspecified; K21.9 Gastro-esophageal reflux disease without esophagitis; F10.99 Alcohol use, unspecified with unspecified alcohol-induced disorder